=== PATIENT | male | born 1990 | race Caucasian/White ===

== ENCOUNTER → 2016-10-13 | Outpatient (CLI) | payer BC ==
--- NOTE | 2016-10-13 18:07 | RADIOLOGY REPORT PS360 ---
CHEST(2 VIEWS-NOT PORTABLE) HISTORY: LEFT CHEST PAIN ORDERING PHYSICIAN: Maynor Mcmahon MD PATIENT AGE: 25 years COMPARISON: 07/08/2012 FINDINGS: The cardiomediastinal silhouette and pulmonary vascularity are within normal limits. The lungs are clear without infiltrates, suspicious nodules, or pleural effusions. No acute bony abnormalities. IMPRESSION: Negative chest, no acute finding
[2016-10-16 03:40] LABS: Neisseria gonorrhoeae, NAA Negative (Negative)
== END ==
LOC: LAB 15:50 → RAD 15:50
PROVIDERS: Internal Medicine
DX: R07.89 Other chest pain (principal)